=== PATIENT | male | born 1975 | race Hispanic/Latino ===

== ENCOUNTER 2017-10-11 17:29 | Emergency (ER) | payer SELFPAY ==
[~2017-10-11] VITALS: Ht 182.9 cm; Wt 88.5 kg
[2017-10-11] MEDS ORDERED: MORPHINE SULFATE INJ 4 MG/ML INJ IV STA (17:34)
[2017-10-11] MEDS ORDERED: HYDROMORPHONE 1MG/1ML INJ IV STA (17:34)
[2017-10-11] MEDS ORDERED: SODIUM CHLORIDE 0.9% 1000ML 1,000 ML IV STA (17:34)
[2017-10-11 17:45] LABS: BASOPHILS % 0.2 % (0.0-1.0); EOSINOPHILS % 0.2 % (0.0-6.0); HEMATOCRIT 46.1 % (38.2-49.6); HEMOGLOBIN 16.1 g/dL (14.0-18.0); LYMPHOCYTES % 9.2 % (18.0-39.1); MEAN CORPUSCULAR HEMOGLOBIN 30.4 pg (28-32); MEAN CORPUSCULAR HGB CONC 34.9 g/dL (31-35); MONOCYTES # (AUTO) 0.4 (0.2-0.8); MONOCYTES % 3.7 % (4.4-11.3); NEUTROPHILS % 86.3 % (38.7-80.0); PLATELET COUNT 229 x10e3/uL (140-360); RED CELL DISTRIBUTION WIDTH 11.8 % (11.7-14.4)
[2017-10-11] MEDS ORDERED: HYDROMORPHONE 1MG/1ML INJ IV NR (17:45)
[2017-10-11 18:04] LABS: ALANINE AMINOTRANSFERASE 24 IU/L (0-55); ALBUMIN 4.5 g/dL (3.5-5.0); ALBUMIN/GLOBULIN RATIO 1.5 (0.8-2.0); ALKALINE PHOSPHATASE 93 IU/L (40-150); ANION GAP 14.3 mmol/L (8-16); BLOOD UREA NITROGEN 17 mg/dL (7-26); BUN/CREATININE RATIO 15 (6-25); CALCIUM 10.1 mg/dL (8.4-10.2); CARBON DIOXIDE 25 mmol/L (22-29); CHLORIDE 106 mmol/L (98-107); CREATININE, SERUM 1.16 mg/dL (0.72-1.25); EST GLOMERULAR FILTRATION RATE > 60 ML/MIN (60-); GLUCOSE 144 mg/dL (74-118); LIPASE 18 U/L (8-78); POTASSIUM 4.3 mmol/L (3.5-5.1); SODIUM 141 mmol/L (136-145)
[2017-10-11 18:05] LABS: BACTERIA,URINE FEW /HPF; BILIRUBIN,URINE NEGATIVE (NEGATIVE); CLARITY,URINE CLEAR (CLEAR); COLOR,URINE YELLOW (YELLOW); EPITHELIAL CELLS,URINE MODERATE /LPF; KETONES,URINE TRACE (NEGATIVE); LEUKOCYTE ESTERASE ,URINE NEGATIVE (NEGATIVE); MUCUS,URINE MODERATE (RARE); NITRITE,URINE NEGATIVE (NEGATIVE); PROTEIN,URINE DIPSTICK NEGATIVE (NEGATIVE); URINE UROBILINOGEN 0.2 mg/dL (0.2 - 1)
--- NOTE | 2017-10-11 18:18 | Diagnostic Imaging Report ---
EXAMINATION: CT of the abdomen and pelvis without contrast. TECHNIQUE: Helical CT images of the abdomen and pelvis were performed from the lung bases to the lesser trochanters. No intravenous contrast was given per renal stone protocol. Coronal and sagittal reformatted images were obtained. COMPARISON: None. CLINICAL HISTORY:Flank pain DISCUSSION: ABSENCE OF INTRAVENOUS CONTRAST DECREASES SENSITIVITY FOR DETECTION OF FOCAL LESIONS AND VASCULAR PATHOLOGY. ABDOMEN/PELVIS: LOWER THORAX: Unremarkable. HEPATOBILIARY:No focal hepatic lesions. No biliary ductal dilation. The gallbladder is normal. SPLEEN: No splenomegaly. PANCREAS: No focal masses or ductal dilatation. ADRENALS: No adrenal nodules. KIDNEYS/URETERS: Right kidney 5 mm nonobstructing calculus. Left distal ureteral calculus 3 mm at the ureterovesicular junction causing minimal hydronephrosis. PELVIC ORGANS/BLADDER: The bladder is normal. PERITONEUM/RETROPERITONEUM: No free air or fluid. LYMPH NODES: No intra-abdominal,retroperitoneal, pelvic or inguinal lymphadenopathy. VESSELS: Limited evaluation GI TRACT: No distention or wall thickening. BONES AND SOFT TISSUES: No bony destructive lesions. No soft tissue abnormalities. IMPRESSION: Left distal ureter 3 mm calculus causing minimal hydronephrosis. Right renal 5 mm calculus without obstruction. Signed by: Dr. Dk Barker M.D. on 10/11/2017 6:15 PM
[2017-10-11] MEDS ORDERED: KETOROLAC TROMETHAMINE 30 MG/ML VIAL IV STA (18:20)
== END 2017-10-11 20:00 | disposition home or self-care (01) ==
LOC: ER 17:29
DX: R10.9 Unspecified abdominal pain (principal); R11.2 Nausea with vomiting, unspecified; N20.1 Calculus of ureter
CPT/HCPCS: 36415; 74176; 80053; 81001; 83690; 85025; 99284; J1170; J1885; J7030